=== PATIENT | female | born 1955 | race Caucasian/White ===

== ENCOUNTER 2017-09-06 14:11 | Outpatient (CLI) | payer BC ==
--- NOTE | 2017-09-06 14:42 | RAD ---
CHEST 2 VIEWS: HISTORY: Dyspnea. COMPARISON: 08/29/17 exam. FINDINGS: Heart size and mediastinum are within normal limits. There is some atherosclerotic change of the aor ta. The lungs are clear of infiltrative process. There is a questionable density seen within the ri ght middle lobe. There is some persistent density in this area. This could possibly just be related to some pericardial fat. IMPRESSION: Stable exam. POS: [facility]
== END 2017-09-06 14:12 | disposition home or self-care (01) ==
LOC: RAD 14:11
PROVIDERS: ATTEND Internal Medicine Critical Care Medicine
DX: R06.00 Dyspnea, unspecified (principal)
CPT/HCPCS: 71046

== ENCOUNTER 2017-09-18 11:05 | Outpatient (CLI) | payer BC | END 2017-09-18 11:06 | disposition home or self-care (01) | LOC: BICMAMMO 11:05 | PROVIDERS: ATTEND Obstetrics & Gynecology | DX: Z12.31 Encounter for screening mammogram for malignant neoplasm of breast (principal) | CPT/HCPCS: 77063; 77067 ==

== ENCOUNTER 2018-04-24 13:34 | Outpatient (CLI) | payer BC ==
--- NOTE | 2018-04-24 13:55 | RAD ---
PA AND LATERAL CHEST: History: Dyspnea. Comparison: 09-06-17 FINDINGS: Heart size and mediastinum within normal limits. There is minimal parenchymal density in the left mid lung field, slightly more prominent than on the prior exam. There is a very faint area of nodularity seen in the right midlung field of questionable significance. This could just be superimposition. There are arthritic changes of the spine. IMPRESSION: Minimally increased parenchymal density in the left midlung field raising the possibility of some min imal infiltrate in this region. Also a questionable faint nodular area in the right midlung field whi ch I tend to favor is just superimposition. I would recommend short term follow up chest radiograph f or assessment of these two areas. POS: [facility]
== END 2018-04-24 13:35 | disposition home or self-care (01) ==
LOC: RAD 13:34
PROVIDERS: ATTEND Internal Medicine Critical Care Medicine
DX: R06.00 Dyspnea, unspecified (principal); R91.8 Other nonspecific abnormal finding of lung field
CPT/HCPCS: 71046

== ENCOUNTER 2018-06-05 14:59 | Outpatient (CLI) | payer BC ==
--- NOTE | 2018-06-05 16:09 | RAD ---
CHEST 2 VIEWS: Date: 06/05/18 HISTORY: Dyspnea. COMPARISON: Radiograph dated 04/24/18. FINDINGS: Right middle lobe opacity is improved, as well as left upper lobe opacity. No pneumothorax. No effusi on. Low grade levoscoliosis of the thoracolumbar junction. IMPRESSION: Interval improvement in aeration of both lungs. No acute intrathoracic abnormality. POS: [facility]
== END 2018-06-05 15:00 | disposition home or self-care (01) ==
LOC: RAD 14:59
PROVIDERS: ATTEND Internal Medicine Critical Care Medicine
DX: R06.00 Dyspnea, unspecified (principal)
CPT/HCPCS: 71046

== ENCOUNTER 2022-01-11 14:33 | Outpatient (CLI) | payer BC | END 2022-01-11 14:34 | disposition home or self-care (01) | LOC: BICULT 14:33 | PROVIDERS: ATTEND Obstetrics & Gynecology | DX: N63.15 Unspecified lump in the right breast, overlapping quadrants (principal); N60.01 Solitary cyst of right breast ==

== ENCOUNTER 2024-04-18 09:40 | Outpatient (CLI) | payer MEDICARE, OTHER | END 2024-04-18 09:41 | disposition home or self-care (01) | LOC: RAD 09:40 | PROVIDERS: ATTEND Internal Medicine Critical Care Medicine | DX: J45.20 Mild intermittent asthma, uncomplicated (principal) | CPT/HCPCS: 71046 ==

== ENCOUNTER 2024-11-06 11:08 | Outpatient (CLI) | payer MEDICARE, OTHER | END 2024-11-06 11:09 | disposition home or self-care (01) | LOC: BICMAMMO 11:08 | PROVIDERS: ATTEND Family Medicine | DX: Z12.31 Encounter for screening mammogram for malignant neoplasm of breast (principal) | CPT/HCPCS: 77063; 77067 ==